=== PATIENT | female | born 1995 | race Caucasian/White ===

== ENCOUNTER 2022-04-04 12:54 | Outpatient (CLI) | payer SELFPAY ==
--- NOTE | 2022-04-04 13:24 | XR_ITS ---
WS: [id number] XR abdomen 1V* [id number] REASON FOR EXAM: ABDOMINAL PAIN FINDINGS: The bowel gas pattern is unremarkable. No free air or retroperitoneal air. No urinary tract calculi. No soft tissue mass. XR/XR abdomen 1V* [id number] IMPRESSION: No acute abnormality.
== END 2022-04-04 12:55 | disposition home or self-care (01) ==
PROVIDERS: Visit Provider Family Medicine
DX: R10.9 Unspecified abdominal pain (principal)
CPT/HCPCS: 74018